=== PATIENT | male | born 1995 | race Caucasian/White ===

== ENCOUNTER 2016-05-27 22:27 | Emergency (ER) | payer OTHER ==
[~2016-05-27] VITALS: Ht 188 cm; Wt 101.2 kg
[~2016-05-27 22:27] MED LIST: ADDERALL30 MG; AUGMENTIN875 MG PO; CLEOCIN300 MG PO; LITHIUM; OMNICEF300 MG PO; PERCOCET 5/31 TABLET PO; ROXICODONE5 MG PO; SEROQUEL; TRAMADOL HCL50 MG PO; TRAZODONE; ZOFRAN ODT4 MG PO
[2016-05-27] MEDS ORDERED: PEN-VEE K,VEET500 MG PO (22:57)
[2016-05-27 23:08] VITALS: BP 152/95
== END 2016-05-27 23:08 | disposition home or self-care (01) ==
LOC: EME 22:27
DX: K08.89 Other specified disorders of teeth and supporting structures (principal); F17.200 Nicotine dependence, unspecified, uncomplicated
CPT/HCPCS: 99281; 99283